=== PATIENT | female | born 1955 | race Caucasian/White ===

== ENCOUNTER 2018-07-14 16:57 | Observation (INO) ==
--- NOTE | 2018-07-14 17:35 | XRay Report ---
XR chest 1V portable HISTORY: Atypical Chest Pain COMPARISON: Chest 04/06/2010. FINDINGS: The lungs are clear. Cardiac silhouette is normal in size. No pleural effusions. No pneumot horax. IMPRESSION: No acute process. Electronically signed by: Jim Young M.D. 07/14/2018 5:33 PM
[2018-07-14 18:04] LABS: Basophils # (auto) 0.04 K/uL (0-0.2); Basophils % (auto) 0.6 %; Eosinophils # (auto) 0.16 K/uL (0-0.5); Eosinophils % (auto) 2.5 %; Hematocrit (blood only) 38.9 % (37-47); Hemoglobin 13.8 g/dL (12.0-16.0); Immature Granulocytes # (auto) 0.03 K/uL (0.00-0.02); Immature Granulocytes % (auto) 0.5 %; Lymphocytes # (auto) 2.86 K/uL (1.2-3.4); Lymphocytes % (auto) 45.1 %; Mean Corpuscular Hgb Conc 35.5 g/dL (32-36); Mean Platelet Volume 10.4 fL (7.4-10.4); Monocytes # (auto) 0.51 K/uL (0.11-0.59); Neutrophils # (auto) 2.74 K/uL (1.4-6.5); Neutrophils % (auto) 43.3 %; Platelet Count 216 K/uL (130-400); RDW Standard Deviation 39.4 fL (36.4-46.3); Red Blood Count 4.63 M/uL (4.2-5.4); White Blood Count 6.34 K/uL (4.8-10.8)
[2018-07-14 18:25] LABS: Alanine Aminotransferase 24 U/L (12-78); Albumin Level 3.8 gm/dl (3.4-5.0); Aspartate Aminotransferase 15 U/L (15-37); BUN Creatinine Ratio 9.1 (10-20); Blood Urea Nitrogen 7 mg/dl (7-18); Calcium 8.8 mg/dl (8.5-10.1); Carbon Dioxide 24 mmol/L (21-32); Chloride 111 mmol/L (98-107); Creatinine Clr Calc Pharmacy 73.1 ml/min; Est GFR (African American) 89.5; Est GFR (Non-African American) 77.2; Glucose 81 mg/dl (70-99); Potassium 3.9 mmol/L (3.5-5.1); Sodium 142 mmol/L (136-145)
[2018-07-14 18:26] LABS: Alkaline Phosphatase 62 U/L (45-117); Bilirubin,Total 0.4 mg/dl (0.2-1); Globulin 3.7 gm/dl (2.5-4.0); Total Protein 7.5 gm/dl (6.4-8.2); Troponin I < 0.015 ng/ml (0-0.045)
[2018-07-14 18:57] LABS: D Dimer 280 ug/L FEU (0-500)
--- NOTE | 2018-07-14 20:14 | History & Physical Report ---
Date of Service July 14, 2018 Assessment & Plan (1) Chest pain: Chest pain as described in HPI. Low clinical suspicion for pulmonary embolism. D-dimer normal. CP atypical for myocardial ischemia, but EKG shows T wave abnormalities. Serum troponin normal. Family history of ischemic heart disease. Non-smoker. Not diabetic or hypertensive. Cholesterol status unknown. Chest pain associated with palpitations-monitor for arrhythmias. Check repeat troponin. Check fasting lipid profile. Check echo. Consult Cardiology. NPO after midnight pending Cardiology input. (2) Breast cancer: S/P lumpectomy and XRT 2015. No apparent active disease. Check echo to rule out pericardial disease. (3) DVT prophylaxis: Very low risk for VTE (< 1.5%) per IMPROVE risk assessment model. VTE prophylaxis not indicated. Ambulate. (4) Discharge planning issues: Anticipated discharge to home. Does not have a local PCP. Patient should be encouraged to establish with a primary care provider in the area. History of Present Illness Chief Complaint: chest pain Primary Care Provider: NO PCP 60-year-old female whose primary care provider is in [place]. History of asthma, breast cancer, and other problems noted below. Presented to the ED with chest pain. Has had a few episodes of chest pain this week. Chest pain not associated with activity or meals. Chest pain is hard to characterize- duration is short and it does not radiate. Chest pain associated with palpitations and lightheadedness. Feels somewhat short of breath when it occurs. No associated diaphoresis, nausea, vomiting. Allergies Allergy/AdvReac Type Severity Reaction Status Date / Time Unknown Med AdvReac Severe raised BP Uncoded 07/14/18 18:39 Home Medications Home Medications Medication Instructions Recorded Confirmed Type azelastine 1 - 2 spray INTRANASAL BID PRN 07/14/18 07/14/18 History cholecalciferol (vitamin D3) 2,000 unit PO DAILY 07/14/18 07/14/18 History [Vitamin D3] fluticasone propionate [Flonase 1 spray INTRANASAL BID 07/14/18 07/14/18 History Allergy Relief] ibuprofen [IBU] 600 mg PO TID PRN 07/14/18 07/14/18 History Past Med/Surg History Medical History Breast cancer (Chronic) left breast 2015, lumpectomy + axillary node dissection, s/p XRT Asthma (Chronic) Closed head injury (Chronic) Surgical History Status post partial mastectomy (Chronic) 2016 left breast Social History Feels Safe at Home: Yes Smoking Status: Never smoker Review of Systems Constitutional: + fever (? - feels warm at times); no weight loss Eyes: + eye pain ("pressure"); no diplopia and no worsening vision Ear, Nose, Mouth, Throat: + nasal congestion and + sinus pain/pressure; no sore throat Respiratory: no cough (occasional) and no dyspnea (occasional) Cardiovascular: as per Subjective / HPI Gastrointestinal: + nausea; no vomiting, no constipation, no diarrhea/loose stools, no blood in stools and no melena Genitourinary (Female): no dysuria and no hematuria Musculoskeletal: + joint pain (shoulder, back); no myalgia Integumentary: no rash and no new lesions Neurologic: + headache(s) Endocrine: no polydipsia and no polyuria Hematologic / Lymphatic: + easy bruising; no easy bleeding and no lymphadenopathy Physical Exam Vital Signs (Past 24 Hours): Last Vital Signs Temp 36.8 C 07/14/18 17:04 Pulse 70 07/14/18 18:49 Resp 18 07/14/18 18:49 BP 144/81 H 07/14/18 18:49 Pulse Ox 98 07/14/18 18:49 Constitutional: WD/WN, vitals as above no acute distress Eyes: PERRL, conjunctivae normal, anicteric sclerae ENMT: external ear and nose normal, oropharynx normal Neck: trachea midline, no thyromegaly Respiratory: normal respiratory effort, lungs clear to auscultation Cardiovascular: Rate/Rhythm: regular rate Heart Sounds: no gallop, no murmur and no cardiac rub Vessels: no JVD Extremities: normal capillary refill; no calf tenderness and no edema Gastrointestinal (Abdomen): normal bowel sounds, soft, nontender, no hepatosplenomegaly Musculoskeletal: Head/Neck/Chest: neck supple Extremities: strength 5/5 throughout; no cyanosis and no clubbing Skin: no rashes, warm and dry Neurologic: PERRL, EOMI no facial palsy no dysarthria or aphasia patellar DTR's 1/2 (R), 2/2 (L) Psychiatric: Orientation: alert and oriented x 3 Affect: euthymic affect Lymphatic: no cervical lymphadenopathy Results & Data Laboratory Results Laboratory Results - last 24 hr 07/14/18 07/14/18 07/14/18 17:50 17:50 17:50 WBC 6.34 RBC 4.63 Hgb 13.8 Hct 38.9 MCV 84.0 MCH 29.8 MCHC 35.5 RDW Std Deviation 39.4 RDW Coeff of Missael 13.0 Plt Count 216 MPV 10.4 Immature Gran % (Auto) 0.5 Neut % (Auto) 43.3 Lymph % (Auto) 45.1 [place] % (Auto) 8.0 Eos % (Auto) 2.5 Baso % (Auto) 0.6 Immature Gran # (Auto) 0.03 H Neut # (Auto) 2.74 Lymph # (Auto) 2.86 [place] # (Auto) 0.51 Eos # (Auto) 0.16 Baso # (Auto) 0.04 D-Dimer Cancelled Sodium 142 Potassium 3.9 Chloride 111 H Carbon Dioxide 24 Anion Gap 7.0 BUN 7 Creatinine 0.82 Est Cr Clr Drug Dosing 73.1 Est GFR ( Amer) 89.5 Est GFR (Non-Af Amer) 77.2 BUN/Creatinine Ratio 9.1 L Glucose 81 Calcium 8.8 Total Bilirubin 0.4 AST 15 ALT 24 Alkaline Phosphatase 62 Troponin I < 0.015 Total Protein 7.5 Albumin 3.8 Globulin 3.7 Albumin/Globulin Ratio 1.0 Lipase 134 07/14/18 18:36 WBC RBC Hgb Hct MCV MCH MCHC RDW Std Deviation RDW Coeff of Missael Plt Count MPV Immature Gran % (Auto) Neut % (Auto) Lymph % (Auto) [place] % (Auto) Eos % (Auto) Baso % (Auto) Immature Gran # (Auto) Neut # (Auto) Lymph # (Auto) [place] # (Auto) Eos # (Auto) Baso # (Auto) D-Dimer 280 Sodium Potassium Chloride Carbon Dioxide Anion Gap BUN Creatinine Est Cr Clr Drug Dosing Est GFR ( Amer) Est GFR (Non-Af Amer) BUN/Creatinine Ratio Glucose Calcium Total Bilirubin AST ALT Alkaline Phosphatase Troponin I Total Protein Albumin Globulin Albumin/Globulin Ratio Lipase Diagnostic Findings Chest x-ray reviewed by the undersigned and formally interpreted by Radiology. Normal cardiac silhouette, no infiltrates, effusions, CHF. ECG Additional Comments: EKG performed at 1723 reviewed and demonstrated normal sinus rhythm at 76/ min, inverted T-waves in leads I, II, aVL, V1-6, flattened T-waves inferiorly. Code Status & VTE Plan Code Status full code VTE Prophylaxis Plan VTE Prophylaxis will be ordered: No Reason for no VTE drug order: Treatment not indicated Reason for no VTE mechanical prophylaxis: Treatment not indicated (1) Chest pain Chest pain type: unspecified Qualified Code(s): R07.9 - Chest pain, unspecified
[2018-07-14] MEDS ORDERED: NITROGLYCERIN SL 0.4 MG/TAB TAB SL PRN (20:40)
[2018-07-14] MEDS ORDERED: ACETAMINOPHEN 325 MG TAB PO PRN (20:40)
--- NOTE | 2018-07-14 23:27 | Emergency Department Note ---
Entered by María Ramirez acting as a scribe for History of Present Illness General Chief complaint: Chest Pain Stated complaint: CHEST PAIN, HEADACHE, NOT FEELING WELL Source: patient Mode of arrival: ambulatory Limitations: no limitations History of Present Illness Provider complaint: palpitations Onset (ago): month(s) 2 Location: chest and left Pain Consistency: + other (daily) Maximum Pain Intensity: 10 Current Pain Intensity: 8 Quality: + other (racing) Relieved By: + none Exacerbated By: + none Associated symptoms: + denies other symptoms (rhinorrhea, diarrhea, dysuria), + chest pain and + headaches; no cough and no nausea/vomiting The patient is a 63 year old female who presents to the Emergency Room with complaints of daily palpitations that began 2 months ago. The patient reports that she has episodes every morning around 0800. She states that the episodes last for several hours. She also notes that she has a headache and chest pain during these episodes. She reports that the chest pain lasts a few seconds and nothing makes it better or worse. She states that she has a history of breast cancer. She denies any dysuria, coughs, runny nose, nausea, vomiting, or diarrhea. The patient also denies a history of diabetes, hypertension, hyperlipidemia, CAD, DVT, sudden at a young age, and smoking. No other exacerbating or remitting factors. Home Medications Home Medications Medication Instructions Recorded Confirmed Type azelastine 1 - 2 spray INTRANASAL BID PRN 07/14/18 07/14/18 History cholecalciferol (vitamin D3) 2,000 unit PO DAILY 07/14/18 07/14/18 History [Vitamin D3] fluticasone propionate [Flonase 1 spray INTRANASAL BID 07/14/18 07/14/18 History Allergy Relief] ibuprofen [IBU] 600 mg PO TID PRN 07/14/18 07/14/18 History Allergies Allergy/AdvReac Type Severity Reaction Status Date / Time Unknown Med AdvReac Severe raised BP Uncoded 07/14/18 18:39 Past Med/Surg History Medical History Breast cancer (Chronic) left breast 2015, lumpectomy + axillary node dissection, s/p XRT Asthma (Chronic) Closed head injury (Chronic) Surgical History Status post partial mastectomy (Chronic) 2016 left breast Social History Communication Ability: Effective Scale Expert Required: No Beliefs That Will Affect Care: None Current Living Situation: Family Feels Safe at Home: Hesitant to Answer Safety Concerns: Afraid for Self Smoking Status: Unknown if ever smoked Hx Alcohol Use: No Hx Substance Use: No Review of Systems See HPI for pertinent positives & negatives. and A total of 10 systems reviewed and were otherwise negative Physical Exam Vital Signs Vital Signs - 24 hr 07/14/18 17:04 07/14/18 17:42 07/14/18 18:37 Temperature 36.8 C Temperature Source Oral Sepsis Recent Fever Within 48 Hours No Sepsis New/Unexplained Change in Mental Status No Sepsis Action Taken by Nursing No Action Required Pulse Rate 79 Pulse Rate [Apical] 64 Pulse Rate [Finger] Pulse Rhythm [Finger] Pulse Strength [Finger] Respiratory Rate 18 16 Respiratory Effort / Characteristics Non-Labored Respiratory Depth Respiratory Pattern Blood Pressure 130/81 Blood Pressure [Left Arm] Blood Pressure Mean 97 Blood Pressure Mean [Left Arm] Blood Pressure Position [Left Arm] Pulse Oximetry 99 98 98 Oxygen Delivery Method Room Air Room Air Room Air 07/14/18 18:49 07/14/18 20:37 07/14/18 21:51 Temperature 36.7 C 36.7 C Temperature Source Oral Oral Sepsis Recent Fever Within 48 Hours Sepsis New/Unexplained Change in Mental Status Sepsis Action Taken by Nursing Pulse Rate Pulse Rate [Apical] 70 Pulse Rate [Finger] 64 64 Pulse Rhythm [Finger] Regular Pulse Strength [Finger] Normal Respiratory Rate 18 18 16 Respiratory Effort / Characteristics Non-Labored Respiratory Depth Normal Respiratory Pattern Regular Blood Pressure Blood Pressure [Left Arm] 144/81 H 120/85 120/85 Blood Pressure Mean Blood Pressure Mean [Left Arm] 102 96 96 Blood Pressure Position [Left Arm] Lying Pulse Oximetry 98 97 97 Oxygen Delivery Method Room Air Room Air Room Air 07/14/18 23:02 Temperature 36.7 C Temperature Source Oral Sepsis Recent Fever Within 48 Hours Sepsis New/Unexplained Change in Mental Status Sepsis Action Taken by Nursing Pulse Rate Pulse Rate [Apical] Pulse Rate [Finger] 72 Pulse Rhythm [Finger] Pulse Strength [Finger] Respiratory Rate 18 Respiratory Effort / Characteristics Respiratory Depth Respiratory Pattern Blood Pressure Blood Pressure [Left Arm] 100/66 Blood Pressure Mean Blood Pressure Mean [Left Arm] 77 Blood Pressure Position [Left Arm] Lying Pulse Oximetry 97 Oxygen Delivery Method Room Air GENERAL: Sitting up in bed, alert, well appearing, well nourished, no distress, non-toxic EYE EXAM: normal conjunctiva. PERRL and EOM's intact. OROPHARYNX: no exudate, no erythema, lips, buccal mucosa, and tongue normal and mucous membranes are moist NECK: supple, no nuchal rigidity, no adenopathy, non-tender LUNGS: Clear to auscultation. Normal chest wall mechanics HEART: no murmurs, S1 normal and S2 normal ABDOMEN: abdomen soft, non-tender, normo-active bowel, sounds, no masses, no rebound or guarding. BACK: Back is symmetrical on inspection and there is no deformity, no midline tenderness, no CVA tenderness. SKIN: no rashes and no bruising UPPER EXTREMITIES: upper extremities are grossly normal. LOWER EXTREMITIES: No pitting edema. Calves are equal bilaterally. NEURO EXAM: Normal sensorium, cranial nerves II-XII intact, normal speech, no weakness of arms, no weakness of legs. No drift. Finger to nose intact. Gross sensation intact. Course ED COURSE: Vital signs were reviewed and are within normal limits. The patients medical record was reviewed The above diagnostic studies were performed and reviewed. ED treatments and interventions as stated above. 1713: The patient was evaluated in room D5. A complete history and physical examination was performed. 1929: Upon reevaluation, the patient appeared to have improvement of her symptoms. I discussed my findings with the patient and she understands and agrees with the treatment plan. Based on the patients age, coexisting illnesses, exam and lab findings the decision to treat as an inpatient was made. The patient remained stable while under my care. The patient will be evaluated for further management. Administered Medications Medical Decision Making Differential Diagnosis Differential diagnosis includes but is not limited to: GERD, esophageal spasm, cholecystitis, acute coronary syndrome, myocardial infarction, pericarditis, pulmonary embolus, aortic dissection, pneumonia, pneumothorax, and musculoskeletal, and shingles. Home Medications Current Medication List: was personally reviewed by me Laboratory Data Attestation: I reviewed the patient's lab results. Result diagrams: 07/14/18 17:50 07/14/18 17:50 Lab Results 07/14/18 07/14/18 07/14/18 Range/Units 17:50 17:50 17:50 WBC 6.34 (4.8-10.8) K/uL RBC 4.63 (4.2-5.4) M/uL Hgb 13.8 (12.0-16.0) g/dL Hct 38.9 (37-47) % MCV 84.0 (80-100) fL MCH 29.8 (25-34) pg MCHC 35.5 (32-36) g/dL RDW Std Deviation 39.4 (36.4-46.3) fL RDW Coeff of Missael 13.0 (11.5-14.5) % Plt Count 216 (130-400) K/uL MPV 10.4 (7.4-10.4) fL Immature Gran % (Auto) 0.5 % Neut % (Auto) 43.3 % Lymph % (Auto) 45.1 % [place] % (Auto) 8.0 % Eos % (Auto) 2.5 % Baso % (Auto) 0.6 % Immature Gran # (Auto) 0.03 H (0.00-0.02) K/uL Neut # (Auto) 2.74 (1.4-6.5) K/uL Lymph # (Auto) 2.86 (1.2-3.4) K/uL [place] # (Auto) 0.51 (0.11-0.59) K/uL Eos # (Auto) 0.16 (0-0.5) K/uL Baso # (Auto) 0.04 (0-0.2) K/uL D-Dimer Cancelled Sodium 142 (136-145) mmol/L Potassium 3.9 (3.5-5.1) mmol/L Chloride 111 H (98-107) mmol/L Carbon Dioxide 24 (21-32) mmol/L Anion Gap 7.0 (3-11) BUN 7 (7-18) mg/dl Creatinine 0.82 (0.6-1.2) mg/dl Est Cr Clr Drug Dosing 73.1 ml/min Est GFR ( Amer) 89.5 Est GFR (Non-Af Amer) 77.2 BUN/Creatinine Ratio 9.1 L (10-20) Glucose 81 (70-99) mg/dl Calcium 8.8 (8.5-10.1) mg/dl Total Bilirubin 0.4 (0.2-1) mg/dl AST 15 (15-37) U/L ALT 24 (12-78) U/L Alkaline Phosphatase 62 (45-117) U/L Troponin I < 0.015 (0-0.045) ng/ml Total Protein 7.5 (6.4-8.2) gm/dl Albumin 3.8 (3.4-5.0) gm/dl Globulin 3.7 (2.5-4.0) gm/dl Albumin/Globulin Ratio 1.0 (0.9-2) Lipase 134 (73-393) U/L Hepatitis C Ab Screen (Neg) 07/14/18 07/14/18 Range/Units 17:50 18:36 WBC (4.8-10.8) K/uL RBC (4.2-5.4) M/uL Hgb (12.0-16.0) g/dL Hct (37-47) % MCV (80-100) fL MCH (25-34) pg MCHC (32-36) g/dL RDW Std Deviation (36.4-46.3) fL RDW Coeff of Missael (11.5-14.5) % Plt Count (130-400) K/uL MPV (7.4-10.4) fL Immature Gran % (Auto) % Neut % (Auto) % Lymph % (Auto) % [place] % (Auto) % Eos % (Auto) % Baso % (Auto) % Immature Gran # (Auto) (0.00-0.02) K/uL Neut # (Auto) (1.4-6.5) K/uL Lymph # (Auto) (1.2-3.4) K/uL [place] # (Auto) (0.11-0.59) K/uL Eos # (Auto) (0-0.5) K/uL Baso # (Auto) (0-0.2) K/uL D-Dimer 280 Sodium (136-145) mmol/L Potassium (3.5-5.1) mmol/L Chloride (98-107) mmol/L Carbon Dioxide (21-32) mmol/L Anion Gap (3-11) BUN (7-18) mg/dl Creatinine (0.6-1.2) mg/dl Est Cr Clr Drug Dosing ml/min Est GFR ( Amer) Est GFR (Non-Af Amer) BUN/Creatinine Ratio (10-20) Glucose (70-99) mg/dl Calcium (8.5-10.1) mg/dl Total Bilirubin (0.2-1) mg/dl AST (15-37) U/L ALT (12-78) U/L Alkaline Phosphatase (45-117) U/L Troponin I (0-0.045) ng/ml Total Protein (6.4-8.2) gm/dl Albumin (3.4-5.0) gm/dl Globulin (2.5-4.0) gm/dl Albumin/Globulin Ratio (0.9-2) Lipase (73-393) U/L Hepatitis C Ab Screen Neg (Neg) Imaging Data Radiologist's Impression: Radiology results as stated below per my review and the radiologist's interpretation: XR chest 1V portable HISTORY: Atypical Chest Pain COMPARISON: Chest 04/06/2010. FINDINGS: The lungs are clear. Cardiac silhouette is normal in size. No pleural effusions. No pneumothorax. IMPRESSION: No acute process. Electronically signed by: Jim Young M.D. 07/14/2018 5:33 PM ECG Data Attestation: I personally reviewed and interpreted this ECG as follows: Indication: chest pain Rate (beats per minute): 76 Rhythm: sinus rhythm Findings: + other (normal axis) and + T-wave inversion (Septal, Anterior, and Lateral) Comparison ECG Date: from (06-APR-2010) Change: the following changes noted (Lateral TWI new) Blood Pressure Blood Pressure Findings: Normal blood pressure Blood Pressure Disposition: did not require urgent referral MDM Narrative Patient is a 63-year-old female who presents the ER for multiple complaints most notably for headache, chest pain and palpitations associated with some shortness of breath. Vitals were obtained and were fairly unremarkable. Labs show no si gnificant leukocytosis or anemia. D-dimer was negative. BMP along with LFTs bilirubin and troponin and lipase was negative. Chest x-ray was unremarkable. EKG did show new changes in the lateral and high lateral leads in comparison to the old. Patient was given aspirin and fluids. Chest pain in combination with these subtle EKG changes I did discuss case with the hospitalist for further observation. Patient was updated bedside. Impression & Plan Chest pain, Acute electrocardiogram changes Discharge Plan Visit Data *Final* Discharge Date/Time: 07/14/18 20:16 Chief Complaint: Chest Pain Stated Complaint: CHEST PAIN, HEADACHE, NOT FEELING WELL ED Provider: Jaime Bowen Discharge Problem: Chest pain, Acute electrocardiogram changes Patient Disposition: Admitted As Inpatient Discharge Instructions Interventions: ED Discharge Assessment Last Done: 07/14/18 20:16 Discharge Problem: Chest pain Qualifiers: Chest pain type: unspecified Qualified Code(s): R07.9 - Chest pain, unspecified The scribe's documentation has been prepared under my direction and personally reviewed by me in its entirety. I confirm that the note above accurately reflects all work, treatment, procedures, and medical decision making performed by me.
[2018-07-15 06:47] LABS: Chol HDL Ratio 4; Cholesterol 216 mg/dl (0-200); HDL Cholesterol 61 mg/dl; LDL Cholesterol Calculated 133 mg/dl; Triglycerides 108 mg/dl (0-150); Troponin I < 0.015 ng/ml (0-0.045); VLDL Cholesterol 22 mg/dl
--- NOTE | 2018-07-15 09:32 | Cardiology Consultation ---
Date of Consultation July 15, 2018 Assessment & Plan (1) Chest pain: The patient describes a vague sensation of episodic chest pain at rest with palpitations and some degree of shortness of breath. Resting echocardiogram reveals normal resting wall motion and no significant valvular abnormalities. There is no pericardial effusion, and her left ventricular and right ventricular systolic function are both normal. Cardiac enzymes have been negative x2 thus far. Patient's symptoms are somewhat atypical for angina, but she has significant EKG changes. She does not recall ever being told that she had an abnormal EKG in the past, but does believe that she had a chemical stress test in [place] prior to her breast surgery in 2016. She has a family history of ischemic heart disease with her father having had what sounds like a coronary artery bypass graft surgery at age 50, and of a stroke in his early 70s. Per description it sounds as though her mother may have of congestive heart failure. Given atypical nature of her symptoms and negative enzymes together with concerning EKG, I think the most reasonable next step was to proceed with stress testing for further risk stratification. She is not certain that she will build to ambulate sufficiently on a treadmill, but she also did not tolerate a pharmacologic stress test performed in the past. We agreed to start with a stress echocardiogram and we will see how she is able to do in terms of her walking. Further recommendations be forthcoming. Case discussed with Dr Shen of the hospitalist service. History of Present Illness Attending Physician: Davion Shen DO History of Present Illness Lidya Mejía is a 63 year old female seen in cardiology consultation per the request of Dr. Zamora for the evaluation of chest pain, palpitations, and shortness of breath. The patient does not have a local primary care provider. She used to live locally and had been followed by Dr. Knowles, however the patient moved away several years ago and has been in [place] taking care of her daughter who apparently has a traumatic brain injury. The patient states that since she moved to [place] she had been diagnosed and treated for left breast cancer with lumpectomy surgery in 2016 and had radiation therapy without chemotherapy. She notes recent sensation of palpitations, and also has woken up at night with a sensation of difficulty breathing as well as palpitations. She notes her physical exertion has been limited due to a chronic right shoulder injury that per her description sounds like it is a rotator cuff injury and therefore she does not do much housework. She describes an episode of feeling a tightness in her head during her recent flight from [place] to [place], and notes that she has been having sinus difficulties. She plans to return to [place] in 5 days. Allergies Allergy/AdvReac Type Severity Reaction Status Date / Time Unknown Med AdvReac Severe raised BP Uncoded 07/14/18 18:39 Home Medications Home Medications Medication Instructions Recorded Confirmed Type azelastine 1 - 2 spray INTRANASAL BID PRN 07/14/18 07/14/18 History cholecalciferol (vitamin D3) 2,000 unit PO DAILY 07/14/18 07/14/18 History [Vitamin D3] fluticasone propionate [Flonase 1 spray INTRANASAL BID 07/14/18 07/14/18 History Allergy Relief] ibuprofen [IBU] 600 mg PO TID PRN 07/14/18 07/14/18 History Patient History Medical History Breast cancer (Chronic) left breast 2015, lumpectomy + axillary node dissection, s/p XRT Asthma (Chronic) Closed head injury (Chronic) Surgical History Status post partial mastectomy (Chronic) 2016 left breast Social History Communication Ability: Effective Play Writer Required: No Beliefs That Will Affect Care: None Current Living Situation: Family Feels Safe at Home: Hesitant to Answer Safety Concerns: Afraid for Self Smoking Status: Unknown if ever smoked Hx Alcohol Use: No Hx Substance Use: No Review of Systems A 10 point review of systems was reviewed and is negative with the exception of that noted above Physical Exam Vital Signs (Past 24 Hours): Last Vital Signs Temp 36.7 C 07/15/18 07:41 Pulse 56 L 07/15/18 07:41 Resp 18 07/15/18 07:41 BP 111/74 07/15/18 07:41 Pulse Ox 95 07/15/18 07:41 Physical Exam: General: no acute distress and stated age Eyes: conjunctiva are pink and non-injected, sclera clear Neck: normal jugular venous pulse, no hepatojugular reflux Chest: normal shape and normal respiratory effort Lungs: clear to auscultation and percussion Cardiac Exam: - regular heart sounds, no murmurs, rubs, or gallops, no jugular venous distention Abdomen: abdomen soft, non-tender, no abnormal masses and no hepatosplenomegaly Musculoskeletal: no gait disturbance, no weakness Extremities: no edema and no cyanosis Neuro:awake, coversant, follows commands, no focal motor deficits Psych: appropriate affect and insight. Results & Data Laboratory Results Cardiac Enzymes 07/14/18 07/15/18 Range/Units 17:50 05:35 AST 15 (15-37) U/L Troponin I < 0.015 < 0.015 (0-0.045) ng/ml Lipids 07/15/18 Range/Units 05:35 Triglycerides 108 (0-150) mg/dl Cholesterol 216 H (0-200) mg/dl HDL Cholesterol 61 mg/dl Cholesterol/HDL Ratio 4 CBC 07/14/18 Range/Units 17:50 WBC 6.34 (4.8-10.8) K/uL RBC 4.63 (4.2-5.4) M/uL Hgb 13.8 (12.0-16.0) g/dL Hct 38.9 (37-47) % Plt Count 216 (130-400) K/uL Neut # (Auto) 2.74 (1.4-6.5) K/uL Lymph # (Auto) 2.86 (1.2-3.4) K/uL [place] # (Auto) 0.51 (0.11-0.59) K/uL Eos # (Auto) 0.16 (0-0.5) K/uL Baso # (Auto) 0.04 (0-0.2) K/uL Comprehensive Metabolic Panel 07/14/18 Range/Units 17:50 Sodium 142 (136-145) mmol/L Potassium 3.9 (3.5-5.1) mmol/L Chloride 111 H (98-107) mmol/L Carbon Dioxide 24 (21-32) mmol/L BUN 7 (7-18) mg/dl Creatinine 0.82 (0.6-1.2) mg/dl Glucose 81 (70-99) mg/dl Calcium 8.8 (8.5-10.1) mg/dl AST 15 (15-37) U/L ALT 24 (12-78) U/L Alkaline Phosphatase 62 (45-117) U/L Total Protein 7.5 (6.4-8.2) gm/dl Albumin 3.8 (3.4-5.0) gm/dl Intake and Output 04/02/19 04/03/19 04/03/19 22:59 06:59 14:59 Output Total 600 / 601 Balance - -600 / -601 Output: Urine 600 / 601 Other: Other Intake Source npo Weight 85.5 kg 84.5 kg Diagnostic Findings EKG performed on arrival 07/14/18 at 1723 and reviewed independently revealed normal sinus rhythm at 76 bpm, with T wave inversions noted in the anterior precordial leads V1 to V6 suggestive of anterolateral ischemia. Compared to a prior tracing performed in March 2010 at [facility] she previously had nonspecific T wave changes in leads V2 and V3, T wave changes however are more prominent on the present EKG and have extended to the lateral leads with also new coexistent nonspecific changes in the inferior leads. EKG performed 07/15/2018 at 745: Sinus bradycardia, T wave changes in the anterior precordial leads as well as the high lateral leads I and aVL suggestive of possible ischemia. Medications Administered Current Inpatient Medications Acetaminophen (Tylenol) 650 mg PO Q4H PRN PRN Reason: Pain or Fever Stop: 08/13/18 20:39 Last Admin: 07/15/18 08:32 Dose: 650 mg Documented by: Nitroglycerin (Nitrostat) 0.4 mg SL UD PRN PRN Reason: Chest Pain Stop: 08/13/18 20:39 (1) Chest pain Chest pain type: unspecified Qualified Code(s): R07.9 - Chest pain, unspecified
--- NOTE | 2018-07-15 14:14 | Discharge Summary ---
Date of Service July 15, 2018 Admission HPI Per Admitting Provider 60-year-old female whose primary care provider is in [place]. History of asthma, breast cancer, and other problems noted below. Presented to the ED with chest pain. Has had a few episodes of chest pain this week. Chest pain not associated with activity or meals. Chest pain is hard to characterize- duration is short and it does not radiate. Chest pain associated with palpitations and lightheadedness. Feels somewhat short of breath when it occurs. No associated diaphoresis, nausea, vomiting. Admission Exam Per Admitting Provider Constitutional: WD/WN, vitals as above no acute distress Eyes: PERRL, conjunctivae normal, anicteric sclerae ENMT: external ear and nose normal, oropharynx normal Neck: trachea midline, no thyromegaly Respiratory: normal respiratory effort, lungs clear to auscultation Cardiovascular: Rate/Rhythm: regular rate Heart Sounds: no gallop, no murmur and no cardiac rub Vessels: no JVD Extremities: normal capillary refill; no calf tenderness and no edema Gastrointestinal (Abdomen): normal bowel sounds, soft, nontender, no hepatosplenomegaly Musculoskeletal: Head/Neck/Chest: neck supple Extremities: strength 5/5 throughout; no cyanosis and no clubbing Skin: no rashes, warm and dry Neurologic: PERRL, EOMI no facial palsy no dysarthria or aphasia patellar DTR's 1/2 (R), 2/2 (L) Psychiatric: Orientation: alert and oriented x 3 Affect: euthymic affect Lymphatic: no cervical lymphadenopathy Principal Diagnosis CP Discharge Exam ROS-No Headache, No Visual Changes, No Nausea, No Vomiting, No Fever, No Chills, No Neck Pain or Stiffness, No Chest Pain, No Palpitations, No SOB, No RONQUILLO, No Cough, No Sputum, No Wheezing, No Abdominal Pain, No Diarrhea, No Hematemesis, No Hemoptysis, No Unexpected Weight Loss, No Flank pain, No Melena, No Hematochezia, No Frequency, No Urgency, No Burning, No Hematuria, No Rashes, No Diaphoresis. Appetite is Normal Physical Exam Gen-AAO x 3, NAD, Afebrile Head-NCAT, EOMI, PERRLA, Anicteric Sclera, No Posterior Pharyngeal Erythema Neck-Supple, No JVD, No Thyromegaly, No Masses, No LAD, No Bruits Lungs-Clear to Auscultation Bilaterally, No Rales, No Rhonchi, No Wheezing, No Crepitus Chest-No S4, +S1, +S2, No S3, No Murmurs, No Rubs, No Gallops, No Ectopy Abdomen-Soft, Bowel Sounds Present, Non Tender, Non Distended, No Hepatomegaly, No Splenomegaly, No Palpable Masses, No Rebound, No Rigidity, No Guarding Musculoskeletal-Full Range of Motion Bilaterally, No CVAT Extremities-No Cyanosis, No Clubbing, No Edema Nuero-Cranial Nerves II-XII grossly intact, Motor WNL, DTRs WNL, Strength WNL, Non Focal Psych-Normal Mood Discharge Data Allergies Allergy/AdvReac Type Severity Reaction Status Date / Time Unknown Med AdvReac Severe raised BP Uncoded 07/14/18 18:39 Consultations 07/14/18 19:32 ED Decision to Admit Stat 07/14/18 20:40 Consult Cardiology Routine Current Diagnoses Malignant neoplasm of unspecified site of unspecified female breast (07/14/18) Chest pain, unspecified (07/14/18) Encounter for administrative examinations, unspecified (07/14/18) Allergies Unknown Med Adverse Reaction (Severe, Uncoded 07/14/18 18:39) raised BP Height/Weight/Isolation Height 5 ft 2 in Weight 84.5 kg Chemistry 07/14/18 17:50 Sodium 142 Potassium 3.9 Chloride 111 H Carbon Dioxide 24 Anion Gap 7.0 BUN 7 Creatinine 0.82 Glucose 81 Hospital Course (1) Chest pain: Cardiology workup was negative to include stress test. Recommend Holter monitoring [place]. (2) Breast cancer: S/P lumpectomy and XRT 2015. No apparent active disease. (3) DVT prophylaxis: (4) Discharge planning issues: discharge to home. Does not have a local PCP. Will follow up in [place] with her PCP, recommend Holter in [place] Total Time Total Time Spent Total Time Spent (In Minutes): 45 minutes Total Time Includes: Examination of the Patient, Discharge Planning, Medication Reconciliation and Communication With Other Providers Discharge Plan Discharge Items Patient Disposition: Home - Self-Care Reason For Visit: CHEST PAIN Discharge Diagnosis: CP Discharge Goals: Decrease discomfort and Improve function Activity: Resume your previous activity Lifting: Gradually increase as tolerated Bathing: No limitations Sexual Activity: When tolerated Exercise/Sports: Gradually increase as tolerated Driving/Machine Use: No limitations Weightbearing: Left weightbearing and Right weightbearing Non-emergency contact: Primary Care Provider and Senior Maintenance Technician Call non-emergency contact if: you have any medication questions, your symptoms worsen and your pain is not controlled Follow-up/Referrals: PCPALONZO [Primary Care Provider] - 07/20/18 9:00 am (Follow-up with your family physician in [place] and also request a Holter monitor) Diet: Heart Healthy Addtl Provider Instructions: Recommend Holter monitor in [place] cardiac workup negative in [place] Prescriptions: New omeprazole 20 mg capsule,delayed release(DR/EC) 20 mg PO BID Qty: 14 RF: 0 Continued azelastine 137 mcg (0.1 %) aerosol,spray 1 - 2 spray intranasal BID PRN (Reason: Nasal Congestion) RF: 0 fluticasone propionate [Flonase Allergy Relief] 50 mcg/actuation spray,suspension 1 spray intranasal BID RF: 0 cholecalciferol (vitamin D3) [Vitamin D3] 2,000 unit capsule 2,000 unit PO DAILY RF: 0 Discontinued ibuprofen [IBU] 600 mg tablet 600 mg PO TID PRN (Reason: Outbreak) RF: 0 Visit Report Forms: Smoking Cessation Stand-Alone Forms: Call Back Authorization, [facility] Discharge Orders: Discharge Order (Routine); Ordered 07/15/18 Ordered By: Davion Shen Admission Data Admit Date/Time: 07/14/18 19:26 Attending Provider: Davion Shen Admit Provider: Vinnie Zamora Primary Care Provider: PCP,NO Other Providers: Vinnie Zamora ; Jessee Ramirez Service: Telemetry Medical
== END 2018-07-15 16:40 | disposition home or self-care (01) ==
LOC: 2W 16:57 → ED 16:57 → 2W 20:16